=== PATIENT | male | born 1995 | race Caucasian/White ===

== ENCOUNTER 2016-11-22 15:57 | Emergency (ER) | payer OTHER ==
--- NOTE | ~2016-11-22 | ER ---
PATIENT'S NAME: ALLEN GUERIN [facility] AGE: 21 Y [address] ROOM: [place] [address] LOCATION: [facility] ADMIT DATE: 11/22/2016 ER/Outpatient Report DISCHARGE DATE: 11/22/2016 FAMILY PHYSICIAN: PHYSICIAN, NO ATTENDING PHYSICIAN: Leonid Moreno Time of Patient Arrival: 1557 hours. Time of Patient Evaluation: 1615 hours. CHIEF COMPLAINT: Heat exhaustion, syncopal episode. HISTORY OF PRESENT ILLNESS: This is a 21-year-old male, who presents to the ER. States that he was working outside, fixing fence. The patient states that he must not have drink very much and he did not have time to eat lunch today and he started feeling ill. He states that he had nausea and vomiting and then had a syncopal episode. He states that he started having chills and sweats through his clothes. He states he feels a little bit lightheaded at this time. The syncopal episode happened approximately an hour and half prior to arrival. He states that he has never had anything like this or this bad happened to him before. The patient denies any chest pain. No heart palpitations at this time. ALLERGIES: NO KNOWN ALLERGIES. MEDICATIONS: None. PAST MEDICAL HISTORY: Negative. PAST SURGICAL HISTORY: Rhinoplasty. SOCIAL HISTORY: He does drink alcohol on the weekends. Smokes socially. REVIEW OF SYSTEMS: All systems reviewed were negative with the exception of those discussed in the HPI. PHYSICAL EXAMINATION: VITAL SIGNS: 6 feet 1 inch stated, weight 81.2 kg taken, blood pressure is PATIENT'S NAME: ALLEN GUERIN [facility] AGE: 21 Y [address] ROOM: [place] [address] LOCATION: [facility] ADMIT DATE: 11/22/2016 ER/Outpatient Report DISCHARGE DATE: 11/22/2016 FAMILY PHYSICIAN: PHYSICIAN, NO ATTENDING PHYSICIAN: Leonid Moreno 129/87, pulse 71, respirations 16, temperature 99.1 degrees with the temporal scanner, and saturations 100% on room air. [place] Coma Score is 15. GENERAL: Alert, calm, well-developed male, in no acute distress. He does appear diaphoretic. His clothes are completely saturated through his jeans and his T-shirt is sweat. HEENT: Head; normocephalic. Eyes; pupils are equal and reactive to light. He does have tacky mucous membranes. LUNGS: Clear to auscultation bilaterally. HEART: Regular rate and rhythm. ABDOMEN: Soft and nontender. He has good bowel sounds throughout. EXTREMITIES: He has full range of motion of all limbs. NEUROLOGIC: Cranial nerves 2 through 12 grossly intact. Gait is steady without assistance. LABORATORY DATA: CBC: White count is 7.6, hemoglobin is 15.3, platelets 245,000, and ANC is 5.0. CMS was unremarkable. TSH is 1.30. CPK is 554, CK-MB is 3.9, and troponin is less than 0.040. EKG shows sinus bradycardia. Chest x-ray was negative. IMPRESSION: Syncopal episode from heat exhaustion. ASSESSMENT AND PLAN: We did start an IV and did give him 2 L of IV fluids here in the emergency room. We did give him 4 mg of Zofran as well. He rested comfortably the entire stay. We did give him some food, a sandwich and some chips while he was here and states he is feeling much better. We will dismiss him to home. He needs to be restful, continue to push fluids, and monitor his symptoms. He should follow up with his primary care physician for followup care. The patient understands and agrees with care. BETZAIDA EVANS PA-C FOR MD RICARDA LIRIANO/selena /[id number] d: 11/23/[id number] t: 12/19/16 0910, OUTPATIENT REPORT
[2016-11-22 17:07] LABS: BASOPHIL % 0.4 %; EOSINOPHIL # 0.2 K/uL (0.0-0.5); EOSINOPHIL % 2.2 %; HEMATOCRIT 42.4 % (37.0-53.0); HEMOGLOBIN 15.3 g/dL (12.0-17.0); IMMATURE GRANULOCYTE % 0.3 %; LYMPHOCYTE # 1.5 K/uL (0.8-4.0); LYMPHOCYTE % 19.1 %; MCH 31.7 pg (27.0-34.0); MCHC 36.1 gm/dL (32.0-36.5); MONOCYTE # 0.9 K/uL (0.0-1.0); MONOCYTE % 11.7 %; MPV 8.9 fl (9.4-12.4); NEUTROPHIL % 66.3 %; NRBC % 0 /100WBC (0-0.00); PLATELET COUNT 245 K/uL (150-450); RBC 4.82 M/uL (4.00-6.00); RDW-CV 12.1 % (11.9-14.6); WBC 7.6 K/uL (4.0-11.0)
[2016-11-22 17:35] LABS: ALBUMIN 4.9 gm/dL (3.5-5.0); ANION GAP 12.9 (10.0-19.0); CREATININE 1.4 mg/dL (0.6-1.3); POTASSIUM 3.9 mMol/L (3.7-5.1); TOTAL BILIRUBIN 0.7 mg/dL (0.0-1.5); TOTAL PROTEIN 8.2 g/dL (6.0-8.4)
[2016-11-22 17:38] LABS: CPK 554 IU/L (35-332)
== END 2016-11-22 18:27 | disposition disaster alternative care site (69) ==
LOC: GMED 15:57
PROVIDERS: Emergency Medicine
DX: T67.5XXA Heat exhaustion, unspecified, initial encounter (principal); R55 Syncope and collapse; X30.XXXA Exposure to excessive natural heat, initial encounter
CPT/HCPCS: J2405; J7030